=== PATIENT | female | born 1990 | race Caucasian/White ===

== ENCOUNTER 2016-09-24 14:49 | Emergency (ER) | payer OTHER ==
[~2016-09-24] VITALS: Ht 167.6 cm; Wt 55.4 kg
[2016-09-24 14:53] VITALS: TEMP 36.4; Ht 167.6 cm; Wt 55.4 kg
[2016-09-24] MEDS ORDERED: SERETIDE INH (15:02)
[2016-09-24] MEDS ORDERED: MONT1TAB3 PO (15:02)
[2016-09-24] MEDS ORDERED: PRVHFAIN INH (15:02)
[2016-09-24 15:38] LABS: MANUAL MICROSCOPIC REQUIRED? NO; REVIEW REQ? NO; URINE APPEARANCE CLEAR (CLEAR); URINE BILIRUBIN NEG (NEG); URINE COLOR YELLOW; URINE EPITHELIAL CELL AUTO >30 /lpf (0-5); URINE NITRITE NEG (NEG); URINE SPECIFIC GRAVITY 1.017 (1.000-1.030); UROBILINOGEN NEG (NEG)
[2016-09-24] MEDS ORDERED: NITR1CAP16 PO (16:26)
[2016-09-24] MEDS ORDERED: PHEN-775 PO (16:26)
[2016-09-24 16:42] VITALS: BP 109/74; PULSE 76; O2SAT 98
--- NOTE | 2016-09-24 23:13 | EMERGENCY ROOM VISIT NOTE ---
History Report prepared by Jose: Adia Pardo Under the Supervision of: Dr. Erica Mcarthur D.O. First contact with patient: 14:51 Chief Complaint: URINARY SYMPTOMS Stated Complaint: URINARY SX Nursing Triage Summary: symptoms started this am History of Present Illness The patient is a 26 year old female who presents to the Emergency Room with complaints of persistent lower abdominal pain which started earlier today. The patient was brought to the ED by EMS. She states that the pain is similar to the pain she experienced with a UTI she had last year. She reports dysuria. She denies nausea, vomiting, loss of appetite, back pain, vaginal discharge, or fever. She is sexually active. LNMP was a couple days ago, but was 2 weeks early. Source of History: patient Onset: earlier today Position: abdomen (lower) Timing: other (persistent) Associated Symptoms: + urinary symptoms (dysuria), No back pain, No fevers, No nausea, No vomiting Note: Pt denies decrease in appetite and vaginal discharge. Review of Systems See HPI for pertinent positives & negatives. A total of 10 systems reviewed and were otherwise negative. Past Medical & Surgical Medical Problems: (1) UTI (urinary tract infection) Family History Patient reports no known family medical history. Social History Smoking Status: Current Every Day Smoker Marital Status: single Occupation Status: student Current/Historical Medications Scheduled Montelukast Sodium (Singulair), 10 MG PO QPM Nitrofurantoin Monohyd Macro (Macrobid), 100 MG PO BID Phenazopyridine Hcl (Pyridium), 1 TAB PO TID [seretide], 1 PUFF INH BID Scheduled PRN Albuterol (Ventolin Hfa), 2 PUFFS INH BID PRN for SOB/Wheezing Allergies Coded Allergies: NUTS (Unverified Allergy, Unknown, swollen tongue, 09/24/16) [place] (Unverified Allergy, Unknown, swollen tongue, 09/24/16) Physical Exam Vital Signs Date Time Temp Pulse Resp B/P Pulse Ox O2 Delivery O2 Flow Rate FiO2 09/24/16 16:42 76 16 109/74 98 09/24/16 16:40 73 16 109/74 98 Room Air 09/24/16 14:53 36.4 74 16 132/66 98 Room Air Physical Exam HEENT: Head - normocephalic and atraumatic Pupils are equal, round, and reactive to light. Extraocular eye muscles are intact, and sclera are anicteric. Nose - moist nasal mucosa without discharge. Mouth - moist buccal mucosa. Oropharynx is nonerythematous and there is no tonsillar exudate or edema noted. Neck: Supple; no JVD, nuchal rigidity, cervical lymphadenopathy. Heart: Regular rate and rhythm. There is a normal S1 and S2 with no murmurs, clicks, or gallops appreciated. Lungs: Clear to auscultation bilaterally with no wheezes, rales, or rhonchi. Abdomen: Soft, nondistended, with good bowel sounds. There are no palpable pulsatile masses or hepatosplenomegaly. There is no guarding, rigidity, or rebound noted. Suprapubic abdominal pain. Extremities: No evidence of cyanosis, clubbing, or edema. There are easily palpable peripheral pulses. Skin: warm and dry with good turgor and no rashes. Medical Decision & Procedures Laboratory Results Test 09/24/16 15:20 Urine Color YELLOW Urine Appearance CLEAR (CLEAR) Urine pH 7.0 (4.5-7.5) Urine Specific [place] 1.017 (1.000-1.030) Urine Protein NEG (NEG) Urine Glucose (UA) NEG (NEG) Urine Ketones NEG (NEG) Urine Occult Blood NEG (NEG) Urine Nitrite NEG (NEG) Urine Bilirubin NEG (NEG) Urine Urobilinogen NEG (NEG) Urine Leukocyte Esterase SMALL (NEG) Urine WBC (Auto) 10-30 /hpf (0-5) Urine RBC (Auto) 0-4 /hpf (0-4) Urine Hyaline Casts (Auto) 1-5 /lpf (0-5) Urine Epithelial Cells (Auto) >30 /lpf (0-5) Urine Bacteria (Auto) NEG (NEG) Urine Test NEG (NEG) Laboratory results per my review. ED Course 1500: The patient was evaluated in room C6. A complete history and physical examination were performed. Nursing notes and previous electronic medical records were reviewed. A urine specimen was obtained and was sent for urinalysis and culture. 1620: I reevaluated the patient. She is doing well. I discussed the results and treatment plan with her. Her urine is sent for culture and she will be put on antibiotics. She verbalized understanding and agreement. She will be discharged home. Medical Decision The patient is a 26 year old female who presents to the ED with lower abdominal pain. Differential diagnosis includes cystitis, pyelonephritis, PID, , ectopic . Lab: test negative, 10-30 WBC, >30 epithelial cells, small amount of leukocyte esterase. The patient presents to the emergency department with suprapubic abdominal pain and dysuria. She has a history of urinary tract infections and believes that she has another one. Urinalysis was not convincing for UTI but based on the patient's symptoms, we will start her on antibiotics until her cultures resulted. She was told to return to the emergency department if symptoms worsened. Impression Primary Impression: Symptoms of urinary tract infection Scribe Attestation The scribe's documentation has been prepared under my direction and personally reviewed by me in its entirety. I confirm that the note above accurately reflects all work, treatment, procedures, and medical decision making performed by me. Departure Information Dispostion Home / Self-Care Prescriptions Phenazopyridine Hcl (PYRIDIUM) 200 Mg Tab 1 TAB PO TID for 2 Days, #6 TAB Prov: Erica Mcarthur D.O. 09/24/16 Nitrofurantoin Monohyd Macro (MACROBID) 100 Mg Cap 100 MG PO BID, #10 CAP Prov: Erica Mcarthur D.OJacobo 09/24/16 Referrals [facility] HOME CARE DOCUMENTATION FORM, IMPORTANT VISIT INFORMATION Patient Instructions My [facility], UTI Additional Instructions Rest. Take plenty of clear liquids Motrin or tylenol for pain Macrobid - 1 tab every 12 hours for 5 days Pyridium - 1 tab every 8 hours for 2 days Return to the ER if you develop pain that localizes in the right lower quadrant , or if you develop fever or vomiting
== END 2016-09-24 16:43 | disposition home or self-care (01) ==
LOC: C.EDC 14:51
DX: R39.89 Other symptoms and signs involving the genitourinary system (principal); F17.200 Nicotine dependence, unspecified, uncomplicated; Z79.899 Other long term (current) drug therapy; Z87.440 Personal history of urinary (tract) infections

== ENCOUNTER 2016-12-21 22:51 | Emergency (ER) | payer OTHER ==
[~2016-12-21] VITALS: Ht 165.1 cm; Wt 59.0 kg
[~2016-12-21 22:51] MED LIST: MONT1TAB3 PO; PRVHFAIN INH; SERETIDE INH
[2016-12-21 23:05] VITALS: TEMP 37; Ht 165.1 cm; Wt 59.0 kg
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
[2016-12-21 23:46] VITALS: O2SAT 100
[2016-12-21 23:50] LABS: URINE APPEARANCE CLEAR (CLEAR); URINE BILIRUBIN NEG (NEG); URINE COLOR YELLOW; URINE NITRITE NEG (NEG); URINE PH 7.5 (4.5-7.5); URINE SPECIFIC GRAVITY 1.017 (1.000-1.030); UROBILINOGEN NEG (NEG)
[2016-12-21 23:56] LABS: MANUAL MICROSCOPIC REQUIRED? NO; REVIEW REQ? NO
[2016-12-22 00:14] LABS: BENZODIAZEPINE, URINE POS (NEG); COCAINE,URINE NEG (NEG); PHENCYCLIDINE, URINE NEG (NEG)
[2016-12-22 00:15] LABS: BASO % 0.9 %; BASO ABS # 0.05 K/uL (0-0.2); COMPLETE YES; EOS % 3.9 %; HEMATOCRIT 41.9 % (37-47); LYMPH % 28.4 %; LYMPH ABS # 1.52 K/uL (1.2-3.4); MEAN CELL VOLUME 86.7 fL (80-100); MEAN CORPUSCULAR HEMOGLOBIN 29.8 pg (25-34); MEAN CORPUSCULAR HGB CONC 34.4 g/dl (32-36); MEAN PLATELET VOLUME 10.3 fL (7.4-10.4); MONO % 7.1 %; NEUT % 59.7 %; PLATELET COUNT 289 K/uL (130-400); RED BLOOD COUNT 4.83 M/uL (4.2-5.4); WHITE BLOOD COUNT 5.36 K/uL (4.8-10.8)
[2016-12-22 00:22] LABS: BUN/CREATININE RATIO 10.5 (10-20); CALCIUM 9.1 mg/dl (8.5-10.1); CREATININE 0.79 mg/dl (0.60-1.20); POTASSIUM 3.6 mmol/L (3.5-5.1)
[2016-12-22 00:24] LABS: ACETAMINOPHEN < 2 ug/ml (10-30)
[2016-12-22] MEDS ORDERED: SRVDIN60 INH (01:30)
[2016-12-22] MEDS ORDERED: IBUP-1459 PO (01:31)
[2016-12-22 01:38] VITALS: BP 106/62; PULSE 71; O2SAT 98
[2016-12-25 13:37] LABS: HYDROXYETHYLFLURAZEPAM CONF NEGATIVE NG/ML (CUTOFF=50); HYDROXYMIDAZOLAM NEGATIVE NG/ML (CUTOFF=50); HYDROXYTRIAZOLAM CONF NEGATIVE NG/ML (CUTOFF=50); TEMAZEPAM CONF NEGATIVE NG/ML (CUTOFF=50)
== END 2016-12-22 01:40 | disposition home or self-care (01) ==
LOC: EDBD 22:51 → C.EDA 22:55
DX: T41.3X5A Adverse effect of local anesthetics, initial encounter (principal); F17.200 Nicotine dependence, unspecified, uncomplicated; Z87.440 Personal history of urinary (tract) infections; Z91.018 Allergy to other foods

== ENCOUNTER → 2017-09-17 | Day surgery (SDC) | payer OTHER ==
[2017-09-08 14:04] VITALS: Ht 168.9 cm; Wt 55.0 kg
[~2017-09-17] VITALS: Ht 168.9 cm; Wt 55.0 kg
[~2017-09-17] MED LIST changes: +FENTANYL CITRATE INJ 50 MCG/1 ML 2 ML VIAL ONE; +LIDOCAINE HCL 2% 2 ML VIAL (20MG/ML) ONE; +MIDAZOLAM HCL 1 MG/ML 2ML VIAL ONE; +PRLSR20 PO; +PROPOFOL IV EMULSION 10 MG/ML 20 ML VIAL IV ONE; -PRVHFAIN INH; -SERETIDE INH; +SODIUM CHLORIDE 0.9% 500ML 500 ML IV ONE; +SRVDIN60 INH; +VNTHFA/IN INH
--- NOTE | 2017-09-17 10:03 | Endo History and Physical ---
History & Physical Date of Service: Sep 17, 2017. Chief Complaint: Dysphagia Referring Physician: [facility] History of Present Illness 27 yo female who presents for EGD secondary to dysphagia. Past Surgical History Hx Cardiac Surgery: No Hx Internal Defibrillator: No Hx Pacemaker: No Hx Abdominal Surgery: No Hx of Implantable Prosthesis: No Hx Cancer Surgery: No Hx Thoracic Surgery: No Hx Orthopedic: No Hx Urinary Tract Surgery: No Family History None Social History Smoking Status: Former Smoker Hx Substance Use: No Hx Alcohol Use: No Allergies Coded Allergies: [place] (Verified Allergy, Unknown, TONGUE SWELLING, 09/08/17) [place] (Verified Allergy, Unknown, TONGUE SWELLING, 09/08/17) NO KNOWN DRUG ALLERGIES (Verified Allergy, Unknown, ., 09/08/17) NUTS (Verified Allergy, Unknown, swollen tongue, 09/17/17) [place] (Verified Allergy, Unknown, swollen tongue, 09/17/17) Current Medications Reported Home Medications Medications Dose Route/Sig Max Daily Dose Days Date Category Ventolin Hfa (Albuterol) 200 Puffs/30132 Mcg Aers 2-4 Puffs INH Q6H PRN 09/08/17 Reported Singulair (Montelukast Sodium) 10 Mg Tab 10 Mg PO QPM 09/08/17 Reported Serevent Diskus (Salmeterol Xinafoate) 50 Mcg Aerp 1 Puff INH BID 12/22/16 Reported Prilosec (Omeprazole) 20 Mg Capcr 20 Mg PO QAM 09/08/17 Reported Vital Signs Weight (Kilograms): 55 Height (Feet): 0 Height (Inches): 66.5 Date Time Temp Pulse Resp B/P (MAP) Pulse Ox O2 Delivery O2 Flow Rate FiO2 09/17/17 09:55 36.8 78 16 125/70 (88) 98 Room Air Physical Exam General Appearance: WD/WN, no apparent distress Respiratory/Chest: Auscultation: breath sounds normal Cardiovascular: Heart Auscultation: RRR Abdomen: Bowel Sounds: normal Inspection & Palpation: soft, non-distended, no tenderness, guarding & rebound Assessment and Plan Assessment: 27 yo female who presents for EGD secondary to dysphagia. Plan: Proceed with EGD.
--- NOTE | 2017-09-17 10:55 | Discharge Instructions ---
Endoscopy Patient Instructions Date / Procedure(s) Performed Sep 17, 2017. EGD Allergy Information Coded Allergies: [place] (Verified Allergy, Severe, TONGUE SWELLING, 09/17/17) [place] (Verified Allergy, Severe, TONGUE SWELLING, 09/17/17) NUTS (Verified Allergy, Severe, swollen tongue, 09/17/17) [place] (Verified Allergy, Severe, swollen tongue, 09/17/17) NO KNOWN DRUG ALLERGIES (Verified Allergy, Unknown, ., 09/08/17) Discharge Date / Findings Sep 17, 2017. Gastric antrum biopsies Mid-esophageal biopsies Medication Instructions OK to resume all medications today as prescribed Reported Home Medications Medications Dose Route/Sig Max Daily Dose Days Date Category Ventolin Hfa (Albuterol) 200 Puffs/70174 Mcg Aers 2-4 Puffs INH Q6H PRN 09/08/17 Reported Singulair (Montelukast Sodium) 10 Mg Tab 10 Mg PO QPM 09/08/17 Reported Serevent Diskus (Salmeterol Xinafoate) 50 Mcg Aerp 1 Puff INH BID 12/22/16 Reported Prilosec (Omeprazole) 20 Mg Capcr 20 Mg PO QAM 09/08/17 Reported Provider Instructions Activity Restrictions - No exercising or heavy lifting for 24 hours. - Do not drink alcohol the day of the procedure. - Do not drive a car or operate machinery until the day after the procedure. - Do not make any important decisions or sign important papers in 24 hours after the procedure. Following Day: - Return to full activity which may include returning to work/school. Diet Start your diet with liquids and light foods (jello, soup, juice, toast). Then eat your usual diet if not nauseated. Treatment For Common After Affects For mild abdominal pain, bloating, or excessive gas: - Rest - Eat lightly - Lie on right side Follow-Up Information Follow-up with [facility] as scheduled Anesthesia Information What You Should Know You have had a procedure that required some medicine to reduce anxiety and discomfort. This treatment is called moderate sedation. After receiving the treatment, you may be sleepy, but you will be able to breathe on your own. The effects of the treatment may last for several hours. Follow these instructions along with Activity/Diet recommendations noted above: * Do NOT do anything where dizziness or clumsiness would be dangerous. * Rest quietly at home today, then you can be up and about tomorrow. * Have a responsible person stay with you the rest of today. * You may have had an I.V. today. If so, you may take the dressing off later today. Recommendations Call your doctor if: * Trouble breathing * Continuous vomiting for more than 24 hours * Temperature above 101 degrees * Severe abdominal pain or bloating * Pain not relieved by pain medicine ordered * There is increased drainage or redness from any incision * A large amount of rectal bleeding greater than 2-3 tablespoons. (If you had a polyp/s removed or have hemorrhoids, a small amount of blood - from the rectum is to be expected.) * You have any unanswered questions or concerns. IN THE EVENT OF A SERIOUS EMERGENCY, GO TO THE NEAREST EMERGENCY ROOM Your discharge instructions were prepared by provider Willie Fox. Patient Instructions Signature Page Rose Benjaminic Patient (or Guardian) Signature/Date: I have read and understand the instructions given to me by my caregivers. Caregiver/RN/Doctor Signature/Date: The above-named patient and/or guardian has received patient instructions on this date. + Original Patient Signature Page (only) stays with chart. Please make copy for patient.
--- NOTE | 2017-09-17 11:04 | GI REPORT ---
Procedure Date: 09/17/2017 10:28 AM Procedure: Upper GI endoscopy Indications: Dysphagia Medicines: Monitored Anesthesia Care Complications: No immediate complications. Estimated Blood Loss: Estimated blood loss: none. Procedure: Pre-Anesthesia Assessment: - Prior to the procedure, a History and Physical was performed, and patient medications and allergies were reviewed. The patient's tolerance of previous anesthesia was also reviewed. The risks and benefits of the procedure and the sedation options and risks were discussed with the patient. All questions were answered, and informed consent was obtained. Prior Anticoagulants: The patient has taken no previous anticoagulant or antiplatelet agents. ASA Grade Assessment: II - A patient with mild systemic disease. After reviewing the risks and benefits, the patient was deemed in satisfactory condition to undergo the procedure. After obtaining informed consent, the endoscope was passed under direct vision. Throughout the procedure, the patient's blood pressure, pulse, and oxygen saturations were monitored continuously. The scope was introduced through the mouth, and advanced to the second part of duodenum. The upper GI endoscopy was accomplished without difficulty. The patient tolerated the procedure well. Findings: No endoscopic abnormality was evident in the esophagus to explain the patient's complaint of dysphagia. Biopsies were taken with a cold forceps for histology in the mid-esophagus. The entire examined stomach was normal. Biopsies were taken with a cold forceps for Helicobacter pylori testing. The examined duodenum was normal. Impression: - No endoscopic esophageal abnormality to explain patient's dysphagia. Biopsied. - Normal stomach. Biopsied. - Normal examined duodenum. Recommendation: - Resume previous diet. - Continue present medications. - Await pathology results. - Return to primary care physician as previously scheduled. Willie Fox, DO 09/17/2017 11:04:04 AM This report has been signed electronically. Note Initiated On: 09/17/2017 10:28 AM I attest to the content of the Intraoperative Record and orders documented therein, exceptions below
--- NOTE | 2017-09-17 11:08 | Anesthesiology Progress Note ---
Anesthesia Post Op Note Date & Time Sep 17, 2017 at 11:08 Vital Signs Pain Intensity: 0 Vital Signs Past 12 Hours Date Time Temp Pulse Resp B/P (MAP) Pulse Ox O2 Delivery O2 Flow Rate FiO2 09/17/17 09:55 36.8 78 16 125/70 (88) 98 Room Air Notes Mental Status: alert / awake / arousable, participated in evaluation Pt Amnestic to Procedure: Yes Nausea / Vomiting: adequately controlled Pain: adequately controlled Airway Patency, RR, SpO2: stable & adequate BP & HR: stable & adequate Hydration State: stable & adequate Anesthetic Complications: no major complications apparent
[2017-09-17 11:28] VITALS: BP 120/71; PULSE 62; O2SAT 98
== END | disposition home or self-care (01) ==
LOC: C.GI 09:33
PROVIDERS: ATTEND Internal Medicine
DX: R13.10 Dysphagia, unspecified (principal); K29.50 Unspecified chronic gastritis without bleeding; J45.909 Unspecified asthma, uncomplicated; Z87.891 Personal history of nicotine dependence; Z91.018 Allergy to other foods; Z98.818 Other dental procedure status